=== PATIENT | female | born 1980 | race Caucasian/White ===

== ENCOUNTER → 2017-12-25 | Outpatient (CLI) | payer MEDICAID ==
--- NOTE | 2017-12-25 09:26 | RADIOLOGY IMAGING REPORT ---
FACILITY: [facility] - [place] PATIENT NAME: Camille Corrae : 1980 MR: [id number] V: [id number] EXAM DATE: ORDERING PHYSICIAN: GILBERT GORDILLO TECHNOLOGIST: Location: [facility] Patient: Camille Correa : 1980 Visit/Account:[id number] Date of Sevice: 12/25/2017 VENOUS DOPP LOW LEFT EXTREMITY HISTORY: at 30 weeks gestation, 2-3 weeks of leg swelling. Concern for deep venous thrombu s. COMPARISON: None. FINDINGS: Grayscale, duplex and color Doppler interrogation of the left lower extremity deep veins from common femoral vein to proximal calf was completed. Compression was performed where it was possible. The rig ht common femoral vein was evaluated using similar technique. Common femoral vein - Negative. Femoral vein - Negative. Deep femoral vein - Negative. Popliteal vein - Negative. Visualized deep calf veins - Negative. Popliteal fossa: Negative. Contralateral (right) common femoral vein: Negative. IMPRESSION: No evidence of acute deep venous thrombosis in the visualized veins of the left lower extremity. Report Dictated By: Wayne Penaloza at 12/25/2017 9:21 AM Report E-Signed By: Wayne Penaloza at 12/25/2017 9:22 AM WSN:[id number]
== END ==
LOC: US 08:29
PROVIDERS: ATTEND Physician Assistant
DX: R22.42 Localized swelling, mass and lump, left lower limb (principal)

== ENCOUNTER → 2018-01-08 | Outpatient (CLI) | payer MEDICAID ==
[~2018-01-08] VITALS: Ht 175.3 cm; Wt 136.5 kg
[~2018-01-08] MED LIST: ACET-1966 PO; ACETA/BUTAL/CAFF 325/50/40 TAB PO ONE; ASPI81TA94 PO; CETI10CA8 PO; METF-450 PO; PREN-127 PO; RANI-375 PO
[2018-01-08 14:30] VITALS: BP 136/80; Ht 175.3 cm; Wt 136.5 kg
[2018-01-08 15:17] LABS: PLATELET COUNT, AUTOMATED 164 K/uL (150-450)
== END ==
LOC: OB 13:53 → L&D 13:53 → UNDOADMIN 13:53 → UNDODISIN 16:45 → EDSTATUS 01-09 12:57
PROVIDERS: ATTEND Student in an Organized Health Care Education/Training Program
DX: O26.893 Other specified pregnancy related conditions, third trimester (principal); R51 Headache; R03.0 Elevated blood-pressure reading, without diagnosis of hypertension; Z3A.32 32 weeks gestation of pregnancy
CPT/HCPCS: 36415; 82040; 82247; 82310; 82374; 82435; 82565; 82570; 82947; 84075; 84132; 84155; 84156; 84295; 84450; 84460; 84520; 85025

== ENCOUNTER 2018-02-16 05:26 | Inpatient (IN) | payer MEDICAID ==
[~2018-02-16] VITALS: Ht 182.9 cm; Wt 144.7 kg
[2018-02-16] VITALS (20 sets, daily range): BP systolic 113–143; BP diastolic 58–81; Ht 182.9 cm; Wt 144.7 kg
[~2018-02-16 05:26] MED LIST changes: -ACETA/BUTAL/CAFF 325/50/40 TAB PO ONE
[2018-02-16] MEDS ORDERED: FAMOTIDINE(*) 20MG/50ML PREMIX 50 ML IVPB PRN (05:27)
[2018-02-16] MEDS ORDERED: DLR(*) 1000 ML BAG 1,000 ML IV PRN (05:27)
[2018-02-16] MEDS ORDERED: LR(*) 1000 ML BAG 1,000 ML IV PRN (05:27)
[2018-02-16] MEDS ORDERED: OXYTOCIN 30 UNIT/D5LR 500 ML 500 ML IV PRN (05:27)
[2018-02-16] MEDS ORDERED: fentaNYL CITR 100 MCG/2 ML AMP IVP PRN ×2 (05:30→23:50)
[2018-02-16] MEDS ORDERED: LIDOCAINE 1% LOCAL 300 MG/30ML INJ PRN (05:30)
[2018-02-16] MEDS ORDERED: TERBUTALINE SULF 1 MG/ML VIAL SUBQ PRN (05:30)
[2018-02-16] MEDS ORDERED: METOCLOPRAMIDE 10 MG/2 ML SDV IVP PRN (05:30)
[2018-02-16] MEDS ORDERED: cefOXitin/DEX(*) 2GM/50ML PREM 50 ML IVPB PRN (05:30)
[2018-02-16] MEDS ORDERED: FLUSH 10 ML SYR IVP PRN (05:30)
[2018-02-16 06:19] LABS: PLATELET COUNT, AUTOMATED 150 K/uL (150-450)
[2018-02-16] MEDS ORDERED: LIDO/EPI 2% MPF 1:200,000 20ML EPI PRN (08:30)
[2018-02-16] MEDS ORDERED: BUPIVACAINE 0.25% MPF INJ EPI PRN (08:30)
[2018-02-16] MEDS ORDERED: EPIDURAL KEYS XX PRN (08:30)
[2018-02-16] MEDS ORDERED: fentaNYL CITR 100 MCG/2 ML AMP IT PRN (08:30)
[2018-02-16] MEDS ORDERED: BUPIVACAINE 0.5% INJ 30ML VIAL EPI PRN (08:30)
[2018-02-16] MEDS ORDERED: LIDOCAINE/PF 2% 200MG/10ML AMP 200 MG/10 ML AMPUL EPI PRN (08:30)
[2018-02-16] MEDS ORDERED: FENTANYL/ROPIVACAINE 100 ML BAG EPI PRN (08:30)
--- NOTE | 2018-02-16 08:31 | History & Physical ---
History of Present Illness Age of Patient: 37 : 3 Para or TPAL: 2 EDC per LMP: Mar 04, 2018 Estimated Gestational Age: 37.5 Chief Complaint IOL History of Present Illness Presents for scheduled IOL due to gestational hypertension and history of high blood pressure in as well as history of LGA babies at 35 and 38 week s. complicated by obesity (BMI 42 and AMA. She declined all genetic screening. Her GBS screen was negative. Past Medical, Surgical, Family and Obstetric Histories reviewed. Please see ACOG chart. History Allergies: Coded Allergies: No Known Drug Allergies (Unverified , 01/08/18) Med Rec Home Meds Reported Medications Acetaminophen (TYLENOL) 325 Mg Tablet, 650 MG PO PRN PRN for HEADACHE, TAB 01/08/18 Aspirin (ASPIRIN) 81 Mg Tab.chew, 81 MG PO QDAY, TAB.CHEW 01/08/18 Ranitidine Hcl (ZANTAC 75) 75 Mg Tablet, 75 MG PO DAILY 01/08/18 Cetirizine Hcl (ZYRTEC) 10 Mg Capsule, 10 MG PO QDAY, CAPSULE 01/08/18 Metformin Hcl (METFORMIN HCL) 500 Mg Tablet, 1 TAB PO BID, TAB 01/08/18 Vits W-Ca,Fe,Fa(<1MG) ( VITAMINS) 1 Each Tablet, 1 EACH PO DAILY, TAB 01/08/18 Review of Systems All Systems Reviewed/Normal: Yes, Except as Noted Exam General Exam Vital Signs Vital Signs Date Time Temp Pulse Resp B/P (MAP) Pulse Ox O2 Delivery O2 Flow Rate FiO2 02/16/18 06:39 97.7 92 16 128/81 (97) 91 Room Air General Apperance: Alert/Awake/No Acute Distress Neuro: No Gross deficits Eyes: Normal Extraocular Movement & Vison Cardiovascular: Regular Rate and Rhythm Respiratory: No Respiratory Distress Abdomen: Soft, Non-Tender, Non-Distended, Gravid - Non-Tender Extremities: No Cyanosis,Clubbing or Edema Integumentary: Skin Intact without Lesions or Rash Psychological: Alert & Oriented X3, Appropriate Mood & Affect Vaginal Discharge/Fluid?: Bloody Show Cervical Dialation: 4 Cervical Effacement (%): 75 Cervical Consistency: Soft Cervical Position: Anterior Station: -2 Presentation: Vertex Fetus Heart Tone Variabilty: Moderate FHT Accelerations: 15X15 FHT Category: I Medical Decision Making Data Points Result Diagram: 02/16/18 0610 VTE Prophylasis: Adult Deep Vein Thrombosis/Pulmonary: No Pharmacological Contraindicati: Pt at Low Risk for VTE Mechanical Contraindications: Pt at Low Risk for VTE 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 Will be alert to shoulder dystocia a nd PP hemorrhage. Expecting . (2) Gestational hypertension Assessment & Plan: Monitor pressures and manage according to protocol. (3) Obesity, morbid, BMI 40.0-49.9 Problem Qualifiers (1) Gestational hypertension: Trimester: third trimester Qualified Codes: O13.3 - Gestational [- induced] hypertension without significant proteinuria, third trimester SAVI SUMMERS MD Feb 16, 2018 08:31
[2018-02-16] MEDS ORDERED: METHYLERGONOVINE MAL 0.2MG/ML ONE (08:41)
--- NOTE | 2018-02-16 09:45 | Anesthesia OB Pre-Anes Eval ---
History of Present Illness Anesthesia Start Date: Feb 16, 2018 Anesthesia Start Time: 09:00 Current Complication: gestational hypertention, obesity EDC: Mar 04, 2018 : 5 Para: 2 Vital Signs: Vital Signs Date Time Temp Pulse Resp B/P (MAP) Pulse Ox O2 Delivery O2 Flow Rate FiO2 02/16/18 06:39 97.7 92 16 128/81 (97) 91 Room Air Pain Ratin Result Diagram: 02/16/1860902/16/18609 Height (Inches): 72.00 Weight (Pounds): 319 Past Medical History Medical History: obesity, asthma (well controlled) Surgical History: noncontributory Previous Anesthesia: epidural Attended Childbirth Classes?: No Hx Anesthesia Reactions: No Hx Family Anesthesia Reaction: No Current Medications: pitocin Past Complications: obesity Home Meds Reported Medications Acetaminophen (TYLENOL) 325 Mg Tablet, 650 MG PO PRN PRN for HEADACHE, TAB 01/08/18 Aspirin (ASPIRIN) 81 Mg Tab.chew, 81 MG PO QDAY, TAB.CHEW 01/08/18 Ranitidine Hcl (ZANTAC 75) 75 Mg Tablet, 75 MG PO DAILY 01/08/18 Cetirizine Hcl (ZYRTEC) 10 Mg Capsule, 10 MG PO QDAY, CAPSULE 01/08/18 Metformin Hcl (METFORMIN HCL) 500 Mg Tablet, 1 TAB PO BID, TAB 01/08/18 Vits W-Ca,Fe,Fa(<1MG) ( VITAMINS) 1 Each Tablet, 1 EACH PO DAILY, TAB 01/08/18 Allergies: Coded Allergies: No Known Drug Allergies (Unverified , 01/08/18) Anesthesia OB ROS Neurological: No migraines/headaches, No seizures, No neuropathy, No other ENT: Denies Tooth caps, Denies Loose teeth, Denies Chipped teeth, Denies Dentures, Denies Bridges, Denies Retainers, Denies Veneers, Denies Implants, Denies Tongue ring, Denies Other Pulmonary: asthma Airway Class: ll Cardiovascular ROS: No edema, No arrhythmia, No other GI ROS: clear liquids ROS: No Herpes, No STD(s), No Liver Disease, No Renal Disease, No Other Endocrine ROS: No diabetes, No gestational diabetes, No thyroid disorder, No other Musculoskeletal ROS: No low back pain, No low back injury, No scoliosis, No other ASA Classification: 2 Assessment and Plan Anesthesia Plan: KENYATTA QUIÑONES CRNA Feb 16, 2018 09:45
--- NOTE | 2018-02-16 09:50 | Procedure Note ---
Anesthetic Placement Note Anesthesia Plan: LEB Permit for Anesthesia Signed: Yes Anesthesia Technique: Patient Sitting Anesthesia Prep: Chlorhexidine Interspace: L 4-5 Local Anesthetic: 1% Lidocaine, 25 Gauge Needle Amount Local - cc's: 5 Anesthesia Needle: 17g Touhy/Schliff Anesthesia Attempts: 1 Loss of Resistance: Normal Saline Depth of GRAY (cm): 8 Epidural Needle Placement: No CSF, No Blood, No Parasthesia Catheter Insertion (cm): 5 Catheter Type: [place] - Spring Wound Epidural Dressing: Tegaderm, Tape Anesthesia Tray: Lot Number ([id number]), Expiration Date (01/09/2019), Reference Number ([id number]) Anesthesia Medications: Epidural Test Dose: 1.5 Lido/Epi (1:200,000), Dose - mL (5 mL in increments), Time (918), Negative Epidural Loading Dose: 0.2% Ropivicaine, With Fentanyl 2mcg/ml, Dose - ml (6), Time (931) Epidural Infusion: 0.2% Ropivicaine, With Fentanyl 2mcg/ml, Start Time: (32) Epidural Pump Setting: Bolus Dose - mL (5), Lockout - Minutes (20), Maintenance Rate - mL/hr (10), Maximum per Hour - mL (25) Complications: None Comment: 100 mcg Fentanyl via epidural at 0928 KENYATTA MOROCHO CRNA Feb 16, 2018 09:50
--- NOTE | 2018-02-16 13:30 | Labor Progress Note ---
Labor Subjective Progress Notes Subjective Progressed from 5 cm to 9 cm over the last hour. Early decelerations noted. Reassuring FHTs. Vaginal Discharge/Fluid: Bloody Show Labor Pain: Mild Labor Objective Vital Signs Vital Signs Date Time Temp Pulse Resp B/P (MAP) Pulse Ox O2 Delivery O2 Flow Rate FiO2 02/16/18 06:39 97.7 92 16 128/81 (97) 91 Room Air Cervical Dialation: 9 Cervical Effacement (%): 100 Cervical Consistency: Soft Cervical Position: Anterior Station: -1 Presentation: Vertex Fetus Heart Tone Variabilty: Moderate FHT Accelerations: 15X15 FHT Decelerations: Early FHT Category: I Other Result Diagram: 02/16/1860902/16/18609 Assessment and Plan Problems: (1) 37 weeks gestation of Assessment & Plan: Expecting still. Will allow her to go to complete and labor down before pushing. (2) Gestational hypertension (3) Obesity, morbid, BMI 40.0-49.9 Problem Qualifiers (1) Gestational hypertension: Trimester: third trimester Qualified Codes: O13.3 - Gestational [-induced] hypertension without significant proteinuria, third trimester SAVI SUMMERS MD Feb 16, 2018 13:30
--- NOTE | 2018-02-16 13:37 | Anesthesia Progress Note ---
Progress/Maintenance Anesthesia Note Date: Feb 16, 2018 Anesthesia Note Time: 13:30 Pain Intensity: 5 (Pain is located in the pelvis.) Pump: On Pump Rate (ML/HR): 12 Sensory Level: R>L. Dilatation: 9 Position: Left, Tilt Drug Bolus: 0.2% Ropivicaine (5 mL bolus), Fentanyl 2mcg/ml KENYATTA MOROCHO CRNA Feb 16, 2018 13:37
[2018-02-16] MEDS ORDERED: LANOLIN OINT 7 GM TUBE TP PRN (15:55)
[2018-02-16] MEDS ORDERED: HYDROCORTISONE 2.5% CR 30GM TB PR PRN (15:55)
[2018-02-16] MEDS ORDERED: MAGNESIUM HYDROXIDE* 30ML UDCP PO PRN (15:55)
[2018-02-16] MEDS ORDERED: BENZOCAINE 20% 60 ML BTL TP PRN (15:55)
[2018-02-16] MEDS ORDERED: GLYCERIN/WITCH HAZEL LEAF 1 PK TP PRN (15:55)
[2018-02-16] MEDS ORDERED: ACETAMINOPHEN 325 MG TAB PO PRN (15:55)
--- NOTE | 2018-02-16 16:02 | OB Delivery Note ---
Delivery Note Vaginal Delivery Type: Spont. Vaginal Delivery Delivery Date: Feb 16, 2018 Delivery Time: 15:57 Estimated Gestational Age(wks): 37.5 Delivery Anesthesia: Epidural Sex: Female [place] Apgars: 1 Minute (8), 5 Minute (9) Repair Needed: Laceration, 1st Degree Estimated Blood Loss: 500 Notes: Presented for IOL planned for CHTN with recently increasing pressures and history of macrosomia. Her pressures have been stable here. Progressed from 4 cm on admission to 5 cm [id number]. Suddenly moved to 9 cm by 1330 and was complete by 1411. Allowed to labor down until urge to push. Delivery at 1532 in CRISTOPHER position over first degree laceration. When placenta delivered at 1537 there was a large gush of BRVB. Methergine 0.2 mg IM administered as well as Pitocin infusion IV. Cytotec 800 mcg given rectally also. First degree laceration repaired with 2-0 Chromic without complication. By end of repair, bleeding stable and uterus firm. EBL 500 ml. Instructional Manager in Attendence: No Copies to: SAVI SUMMERS MD ; SAVI SUMMERS MD Feb 16, 2018 16:02
--- NOTE | 2018-02-16 16:18 | Anesthesia Progress Note ---
Progress/Maintenance Anesthesia Note Date: Feb 16, 2018 Anesthesia Note Time: 16:17 Pump: Off Assessment and Plan Anesthesia Plan: LEB Anesthesia Stop Day: Feb 16, 2018 Anesthesia Stop Time: 15:57 KENYATTA MOROCHO CRNA Feb 16, 2018 16:18
[2018-02-16] MEDS ORDERED: OXYTOCIN 30 UNIT/D5LR 500 ML 500 ML ONE (16:39)
[2018-02-16] MEDS ORDERED: MISOPROSTOL 200 MCG TAB ONE (16:39)
[2018-02-16] MEDS: IBUPROFEN 800 MG TAB PO SCH (17:00)
[2018-02-16] MEDS: APAP/HYDROCODONE 325/5 TAB PO PRN (20:14)
[2018-02-16 20:21] LABS: PLATELET COUNT, AUTOMATED 157 K/uL (150-450)
[2018-02-16] MEDS ORDERED: CARBOPROST TROMETHAM 250MCG/ML IM ONLY ONE (20:40)
[2018-02-16] MEDS ORDERED: TRANEXAMIC AC 1000 MG/10ML SDV 1,000 MG in NS(*) 0.9% 50 ML BAG 50 ML IVPB ONE (21:40)
[2018-02-16] MEDS: DOCUSATE CALCIUM 240 MG CAP PO SCH (21:55)
[2018-02-16] MEDS ORDERED: MIDAZOLAM 2 MG/2 ML VIAL ONE (22:17)
[2018-02-16] MEDS ORDERED: PROPOFOL EMUL(*) 10MG/ML 20 ML 20 ML ONE (22:17)
[2018-02-16] MEDS ORDERED: KETAMINE HCL-NS 50 MG/5 ML SYR ONE (22:17)
[2018-02-16] MEDS ORDERED: NS(*) 0.9% 1000 ML BAG 1,000 ML ONE (22:20)
[2018-02-16] MEDS ORDERED: fentaNYL CITR 100 MCG/2 ML AMP ONE (22:24)
[2018-02-16] MEDS ORDERED: TRANEXAMIC AC 1000 MG/10ML SDV 1,000 MG in DEXTROSE 5% 50 ML BAG 50 ML IVPB ONE (22:30)
--- NOTE | 2018-02-16 22:33 | OB/GYN Progress Note ---
OB Subjective Progress Notes Subjective Has continued to have steady stream of bleeding and several episodes of passing large clots. EBL at delivery was 500 ml and now has passed an additional estimated 800 ml in clots. Has received 0.2 mg methergine, 2 bags of Pitocin (40U total), Cytotec 800 mcg MT x 1 and recently Hemabate 250 mcg IM. I just ordered tranexamic acid 1 gm IV followed by 1gm over the next 2 hours. She has been typed and cross matched for 2 units PRBCs. Most recent CBC showed hemiglobin 10.1 and hct 31.0, plts 150. OB Objective Physical Exam Vital Signs Date Time Temp Pulse Resp B/P (MAP) Pulse Ox O2 Delivery O2 Flow Rate FiO2 02/16/18 20:40 82 136/79 (98) 02/16/18 20:20 16 92 Room Air 02/16/18 19:56 97.7 General Appearance: Alert/Awake/No Acute Distress Neurological: No Gross deficits Eyes: Normal Extraocular Movement & Vison Respiratory: No Respiratory Distress : Other (manual uterine exam is firm at fundus but difficult to palpate due to obesity and large amount of clot in lower uterine segment) Extremities: No Cyanosis,Clubbing or Edema Integumentary: Skin Intact without Lesions or Rash Psychological: Alert & Oriented X3, Appropriate Mood & Affect Result Diagram: 02/16/18201402/16/18 0610 Assessment and Plan Problems: (1) 37 weeks gestation of (2) Gestational hypertension (3) Obesity, morbid, BMI 40.0-49.9 (4) Hemorrhage, delayed Assessment & Plan: Considering we are approaching 1500 ml, will bring pt back to OR for conscious sedation and manual exam and evacuation of uterine clots with Bakri balloon placement. Will get coag panel and start transfusion of 2 units PRBCs. Problem Qualifiers (1) Gestational hypertension: Trimester: third trimester Qualified Codes: O13.3 - Gestational [- induced] hypertension without significant proteinuria, third trimester SAVI SUMMERS MD Feb 16, 2018 22:33
[2018-02-16] MEDS ORDERED: NS(*) 0.9% 500 ML BAG 500 ML ONE (22:45)
[2018-02-16 22:50] LABS: PLATELET COUNT, AUTOMATED 153 K/uL (150-450)
[2018-02-16 23:04] LABS: INR 0.99
--- NOTE | 2018-02-16 23:27 | Post Operative Note ---
Operative Note - QUILT SEWER Operative Day Date: Feb 16, 2018 Time: 23:15 Physicians Surgeon: Korin Anesthesia: conscious sedation Diagnosis Pre-Op Diagnosis: hemorrhage (delivery 1557) Post-Op Diagnosis: same Procedure Findings: uterus with clot and small fragments of tissue Procedure(s): manual exploration of uterus manual currettage of uterus sharp currettage of uterus placement of Bakri Balloon Complications: none Fluids Fluids: IV cyrstalloid Estimated Blood Loss: 1500 ml Dictated Date OP Note Dictated: Feb 16, 2018 Time OP Note Dictated: 23:18 Copies to: SAVI SUMMERS MD ; SAVI SUMMERS MD Feb 16, 2018 23:16
[2018-02-16] MEDS ORDERED: METHYLERGONOVINE MAL 0.2MG/ML IM ONE (23:50)
[2018-02-16] MEDS ORDERED: cefOXitin/DEX(*) 2GM/50ML PREM 50 ML IVPB ONE (23:50)
[2018-02-17] VITALS (8 sets, daily range): BP systolic 114–135; BP diastolic 56–85
--- NOTE | 2018-02-17 00:10 | Anesthesia OB Pre-Anes Eval ---
History of Present Illness Anesthesia Start Date: Feb 16, 2018 Anesthesia Start Time: 22:40 OB Anesthesia Diagnosis: other (Post hemorrhage) Current Complication: hemorrhage EDC: Mar 04, 2018 : 5 Para: 2 Pain Ratin Result Diagram: 02/16/18 2246 02/16/18 0610 Height (Inches): 72.00 Weight (Pounds): 319 Past Medical History Medical History: hypertension, obesity Surgical History: noncontributory Previous Anesthesia: general, epidural Attended Childbirth Classes?: No Hx Anesthesia Reactions: No Hx Family Anesthesia Reaction: No Past Complications: obesity Home Meds Reported Medications Acetaminophen (TYLENOL) 325 Mg Tablet, 650 MG PO PRN PRN for HEADACHE, TAB 01/08/18 Aspirin (ASPIRIN) 81 Mg Tab.chew, 81 MG PO QDAY, TAB.CHEW 01/08/18 Ranitidine Hcl (ZANTAC 75) 75 Mg Tablet, 75 MG PO DAILY 01/08/18 Cetirizine Hcl (ZYRTEC) 10 Mg Capsule, 10 MG PO QDAY, CAPSULE 01/08/18 Metformin Hcl (METFORMIN HCL) 500 Mg Tablet, 1 TAB PO BID, TAB 01/08/18 Vits W-Ca,Fe,Fa(<1MG) ( VITAMINS) 1 Each Tablet, 1 EACH PO DAILY, TAB 01/08/18 Allergies: Coded Allergies: No Known Drug Allergies (Unverified , 01/08/18) Anesthesia OB ROS Neurological: No migraines/headaches, No seizures, No neuropathy, No other ENT: Denies Tooth caps, Denies Loose teeth, Denies Chipped teeth, Denies Dentures, Denies Bridges, Denies Retainers, Denies Veneers, Denies Implants, Denies Tongue ring, Denies Other Pulmonary: No asthma, No smoker (pks/day/yrs), No other Airway Class: ll Cardiovascular ROS: No edema, No arrhythmia, No other GI ROS: NPO Last Solids Date: Feb 16, 2018 Last Solids Time: 17:00 ROS: No Herpes, No STD(s), No Liver Disease, No Renal Disease, No Other Endocrine ROS: No diabetes, No gestational diabetes, No thyroid disorder, No other Musculoskeletal ROS: No low back pain, No low back injury, No scoliosis, No other ASA Classification: 3, E Assessment and Plan Assessment: Monitored anesthesia care provided for OR procedure by Dr. Langley. Vaginal/uterine exam, clot evacuation, Bakri balloon placement. Anesthesia Stop Day: Feb 16, 2018 Anesthesia Stop Time: 23:40 Condition Patient taken to PACU in stable condition post procedure in OR (OB). Vital signs remained WNL, patient was awake and conversant. Denied nausea. Pain rating 3-4/10 and PO opioids were administered by RN per surgeon orders. Patient discharged from PACU after 40 minutes. No anesthesia concerns at present. KENYATTA MOROCHO CRNA Feb 17, 2018 00:10
[2018-02-17] MEDS: APAP/HYDROCODONE 325/5 TAB PO PRN ×4 (00:44→19:20)
[2018-02-17] MEDS: IBUPROFEN 800 MG TAB PO SCH ×3 (01:00→17:29)
--- NOTE | 2018-02-17 03:13 | OPERATIVE REPORT 1 ---
EVENT DATE: February 16, 2018 SURGEON: Beni Langley MD ANESTHESIA: General conscious sedation, Kemal Edwards CRNA PREOPERATIVE DIAGNOSIS hemorrhage with delivery occurring today at 1557. POSTOPERATIVE DIAGNOSIS hemorrhage with delivery occurring today at 1557. PROCEDURE PERFORMED 1. Manual exploration of the uterus. 2. Manual curettage of the uterus. 3. Sharp curettage of the uterus. 4. Placement of Bakri balloon for hemorrhage management. ESTIMATED BLOOD LOSS Approximately 1500 mL since delivery. FLUIDS IV crystalloid. INDICATIONS FOR PROCEDURE The patient has been having continuous bright red hemorrhage with the additional passage of large clots since delivery. This has been in the face of the usual conservative measures, including 0.2 mg Methergine IM, Cytotec 800 mcg rectally, Pitocin infusion 20 units per bag x2 , Carboprost 250 mcg IM x1, and most recently the start of tranexamic acid. She was typed and crossmatched for two units of packed red blood cells, and have initiated transfusion at this point. Secondary to these issues, I presented for an examination and felt the uterus was still enlarged, with clot within the uterine cavity. Therefore, I had her moved to the operating room under conscious sedation in the dorsal lithotomy position for a manual exploration. DESCRIPTION OF PROCEDURE Once the patient was comfortable, manually, the uterus was explored anteriorly and a large, fist-sized clot was removed, as well as curettage of the uterine cavity removed fragments of placental tissue. Once the manual curettage and exploration was complete, a large banjo curette was passed into the uterus manually, and the uterine cavity was curetted anteriorly and posteriorly without any significant change to the tissue that was removed. Therefore, the Bakri balloon was assembled, passed through the cervix into the uterus, and inflated with 360 mL of normal saline. Once the balloon had been adequately inflated, the bleeding seemed to be very minimal. canal was inspected and found to be without any additional lacerations or injuries. The previously placed stitches in the first-degree perineal laceration were intact, with no visible disruption. Therefore, the patient was cleaned up, returned to the supine position, and taken to recovery. The plan will be to leave this Bakri balloon in place for most of tomorrow and to give time for the blood products and the medication to work and effectively control her bleeding. MARIUM
[2018-02-17] MEDS: METHYLERGONOVINE MAL 0.2MG TAB PO SCH ×4 (05:48→23:48)
[2018-02-17] MEDS ORDERED: LR(*) 1000 ML BAG 1,000 ML IV PRN (05:55)
--- NOTE | 2018-02-17 08:05 | OB/GYN Progress Note ---
OB Subjective Progress Notes Subjective Improved. Bleeding light now and little pain. Feeling better as far as energy and alertness. Had transfusion of 2 units of PRBCs. Pain: Mild OB Objective Physical Exam Vital Signs Date Time Temp Pulse Resp B/P (MAP) Pulse Ox O2 Delivery O2 Flow Rate FiO2 02/17/18 02:32 98.5 80 16 119/72 02/17/18 00:21 95 Nasal Cannula 1.0 Intake and Output 02/17/18 07:00 Intake Total 3222 ml Output Total 2442 ml Balance 780 ml Intake Oral 222 ml IV Total 2000 ml Blood Product 1000 ml Output Urine Total 300 ml Estimated Blood Loss 2142 ml General Appearance: Alert/Awake/No Acute Distress Neurological: No Gross deficits Eyes: Normal Extraocular Movement & Vison Cardiovascular: Normal Rhythm & Peripheral Pulses, Regular Rate and Rhythm Respiratory: No Respiratory Distress, Clear to Auscultation Abdomen: Soft, Non-Tender, Non-Distended : Other (manual uterine exam is firm at fundus but difficult to palpate due to obesity and large amount of clot in lower uterine segment) Extremities: Edema (2+) Integumentary: Skin Intact without Lesions or Rash Psychological: Alert & Oriented X3, Appropriate Mood & Affect Result Diagram: 02/17/18 0555 02/16/18 0610 Assessment and Plan Problems: (1) 37 weeks gestation of (2) Gestational hypertension Assessment & Plan: stable (3) Obesity, morbid, BMI 40.0-49.9 Assessment & Plan: Ambulate today. (4) Hemorrhage, delayed Assessment & Plan: Continue with balloon until tonight and then remove. Will do 20 mg Lasix today for edema. Problem Qualifiers (1) Gestational hypertension: Trimester: third trimester Qualified Codes: O13.3 - Gestational [- induced] hypertension without significant proteinuria, third trimester SAVI SUMMERS MD Feb 17, 2018 08:05
[2018-02-17] MEDS ORDERED: FUROSEMIDE 40 MG TAB PO ONE (08:30)
[2018-02-17] MEDS: DOCUSATE CALCIUM 240 MG CAP PO SCH ×2 (09:00→20:47)
[2018-02-17] MEDS ORDERED: INFLUENZA VIRUS VAC 0.5ML SYR IM ONLY ONE (09:00)
[2018-02-17] MEDS ORDERED: MEASLES,MUMP,RUBELLA VAC 0.5ML SUBQ ONE (09:00)
[2018-02-17] MEDS ORDERED: DIPHTH/TETANUS/ACEL. PERTUSSIS IM ONLY ONE (09:00)
--- NOTE | 2018-02-17 11:55 | Anesthesia Post Eval Note ---
Anesthesia Post Eval Note Vital Signs Date Time Temp Pulse Resp B/P (MAP) Pulse Ox O2 Delivery O2 Flow Rate FiO2 02/17/18 09:03 98.2 73 16 114/56 (75) 95 Nasal Cannula 1.0 Pt able to participate in Eval: Yes Cardiovascular Status: Satisfactory Respiratory Status: Satisfactory Pain Managment: Satisfactory PO Nausea/Vomiting: Satisfactory Temperature Management: Satisfactory Mental Status: Satisfactory, Alert, Oriented X3 Post-Op Hydration Status: Satisfactory, Tolerating PO Well, Voiding w/o Difficulty Anesthesia Tolerance: Post monitored anesthesia care (MAC) evaluation. No anesthesia concerns. Patient pleased with care provided for management of post- hemorrhage. Received 2 units of PRBCs and Bakri balloon still in place. Pain well controlled, denies nausea/vomiting. KENYATTA MOROCHO CRNA Feb 17, 2018 11:55
--- NOTE | 2018-02-17 17:07 | OB/GYN Progress Note ---
OB Subjective Progress Notes Subjective Doing well. Bleeding has been light and feeling stable. BP low. Good UO from Lasix. GI: NEG Nausea : Voiding Well Pain: Mild OB Objective Physical Exam Vital Signs Date Time Temp Pulse Resp B/P (MAP) Pulse Ox O2 Delivery O2 Flow Rate FiO2 02/17/18 13:48 98.4 93 18 119/66 (83) Room Air 02/17/18 09:03 95 1.0 Intake and Output 02/17/18 07:00 Intake Total 3222 ml Output Total 2442 ml Balance 780 ml Intake Oral 222 ml IV Total 2000 ml Blood Product 1000 ml Output Urine Total 300 ml Estimated Blood Loss 2142 ml General Appearance: Alert/Awake/No Acute Distress Neurological: No Gross deficits Eyes: Normal Extraocular Movement & Vison Cardiovascular: Normal Rhythm & Peripheral Pulses, Regular Rate and Rhythm Respiratory: No Respiratory Distress, Clear to Auscultation Abdomen: Soft, Non-Tender, Non-Distended : Other (scant bleeding now) Extremities: Edema (2+) Integumentary: Skin Intact without Lesions or Rash Psychological: Alert & Oriented X3, Appropriate Mood & Affect Result Diagram: 02/17/18 0555 02/16/18 0610 Assessment and Plan Problems: (1) 37 weeks gestation of (2) Gestational hypertension (3) Obesity, morbid, BMI 40.0-49.9 (4) Hemorrhage, delayed Assessment & Plan: Bakri balloon removed without complication. Will monitor bleeding overnight. If does well, home tomorrow. Problem Qualifiers (1) Gestational hypertension: Trimester: third trimester Qualified Codes: O13.3 - Gestational [- induced] hypertension without significant proteinuria, third trimester SAVI SUMMERS MD Feb 17, 2018 17:07
[2018-02-18] MEDS: IBUPROFEN 800 MG TAB PO SCH ×2 (00:18→08:32)
[2018-02-18] MEDS: METHYLERGONOVINE MAL 0.2MG TAB PO SCH (05:32)
[2018-02-18 07:10] VITALS: BP 127/83
[2018-02-18] MEDS: APAP/HYDROCODONE 325/5 TAB PO PRN (07:39)
[2018-02-18] MEDS: DOCUSATE CALCIUM 240 MG CAP PO SCH (08:32)
--- NOTE | 2018-02-18 09:16 | OB/GYN Progress Note ---
OB Subjective Progress Notes Subjective Doing well. Pain well controlled and bleeding light now. Voiding well. GI: NEG Nausea : Voiding Well Pain: Mild OB Objective Physical Exam Vital Signs Date Time Temp Pulse Resp B/P (MAP) Pulse Ox O2 Delivery O2 Flow Rate FiO2 02/18/18 03:00 98.2 17 Room Air 02/17/18 23:40 135/73 (93) 02/17/18 13:48 93 02/17/18 09:03 95 1.0 Intake and Output0 02/18/18 07:00 Intake Total 1970 ml Output Total 1000 ml Balance 970 ml Intake Oral 1470 ml IV Total 500 ml Output Urine Total 1000 ml # Voids 1 General Appearance: Alert/Awake/No Acute Distress Neurological: No Gross deficits Eyes: Normal Extraocular Movement & Vison Cardiovascular: Normal Rhythm & Peripheral Pulses, Regular Rate and Rhythm Respiratory: No Respiratory Distress, Clear to Auscultation Abdomen: Soft, Non-Tender, Non-Distended : Other (scant bleeding now) Extremities: Edema (2+) Integumentary: Skin Intact without Lesions or Rash Psychological: Alert & Oriented X3, Appropriate Mood & Affect Result Diagram: 02/17/18 0555 02/16/18 0610 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 F/U at 6 weeks in office. (2) Gestational hypertension Status: Chronic (3) Obesity, morbid, BMI 40.0-49.9 (4) Hemorrhage, delayed Status: Resolved Assessment & Plan: Precautions for bleeding and infection given. Problem Qualifiers (1) Gestational hypertension: Trimester: third trimester Qualified Codes: O13.3 - Gestational [- induced] hypertension without significant proteinuria, third trimester SAVI SUMMERS MD Feb 18, 2018 09:16
[2018-02-18] MEDS ORDERED: LOR5/325 PO (09:17)
[2018-02-18] MEDS ORDERED: IBUP800T37 PO (09:17)
--- NOTE | 2018-02-18 09:21 | OB/GYN Discharge Summary ---
Discharge Summary Reason for Hosp/Final Diag: (1) 37 weeks gestation of Hospital Course & Plan: Delivered and recovering well, s/p . F/U at 6 weeks in office. (2) Gestational hypertension Status: Chronic (3) Obesity, morbid, BMI 40.0-49.9 (4) Hemorrhage, delayed Status: Resolved Hospital Course & Plan: Precautions for bleeding and infection given. [facility] Vital Signs Vital Signs Date Time Temp Pulse Resp B/P (MAP) Pulse Ox O2 Delivery O2 Flow Rate FiO2 02/18/18 03:00 98.2 17 Room Air 02/17/18 23:40 135/73 (93) 02/17/18 13:48 93 02/17/18 09:03 95 1.0 Weight (Pounds): 319 Result Diagram: 02/17/18 0555 02/16/18 0610 Condition: Improved Discharge: Home, Self Senior Living Meds Active Scripts Hydrocodone Bit/Acetaminophen (HYDROCODON-ACETAMINOPHEN 5-325) 1 Each Tablet, 1- 2 EACH PO Q4H PRN for PAIN, #20 TAB 0 Refills Prov:SAVI LANGLEY MD 02/18/18 Reported Medications Acetaminophen (TYLENOL) 325 Mg Tablet, 650 MG PO PRN PRN for HEADACHE, TAB 01/08/18 Aspirin (ASPIRIN) 81 Mg Tab.chew, 81 MG PO QDAY, TAB.CHEW 01/08/18 Ranitidine Hcl (ZANTAC 75) 75 Mg Tablet, 75 MG PO DAILY 01/08/18 Cetirizine Hcl (ZYRTEC) 10 Mg Capsule, 10 MG PO QDAY, CAPSULE 01/08/18 Metformin Hcl (METFORMIN HCL) 500 Mg Tablet, 1 TAB PO BID, TAB 01/08/18 Vits W-Ca,Fe,Fa(<1MG) ( VITAMINS) 1 Each Tablet, 1 EACH PO DAILY, TAB 01/08/18 Follow up Referrals: SPECIALIST ICU - In 6 Weeks @ [facility] with SAVI LANGLEY MD Follow up with: Dr. Langley [phone] Follow up in: 6 wks PP or PO Discharge Diet: As Tolerates Discharge Activity: As Tolerates, No Heavy Lifting x 6 wks, No Heavy Lifting > 10lb, Pelvic Rest Copies to: SAVI LANGLEY MD ; Problem Qualifiers (1) Gestational hypertension: Trimester: third trimester Qualified Codes: O13.3 - Gestational [- induced] hypertension without significant proteinuria, third trimester SAVI LANGLEY MD Feb 18, 2018 09:21
== END 2018-02-18 14:25 | disposition home or self-care (01) | DRG 768 ==
LOC: OB 05:26
PROVIDERS: ADMIT Obstetrics & Gynecology; ATTEND Obstetrics & Gynecology
PROC: 10E0XZZ Delivery of Products of Conception, External Approach (ICD-10-PCS; principal; 2018-02-16)
PROC: 0W3R7ZZ Control Bleeding in Genitourinary Tract, Via Natural or Artificial Opening (ICD-10-PCS; 2018-02-16)
PROC: 10D17Z9 Manual Extraction of Products of Conception, Retained, Via Natural or Artificial Opening (ICD-10-PCS; 2018-02-16)
PROC: 0HQ9XZZ Repair Perineum Skin, External Approach (ICD-10-PCS; 2018-02-16)
PROC: 3E033VJ Introduction of Other Hormone into Peripheral Vein, Percutaneous Approach (ICD-10-PCS; 2018-02-16)
PROC: 30233N1 Transfusion of Nonautologous Red Blood Cells into Peripheral Vein, Percutaneous Approach (ICD-10-PCS; 2018-02-16)
DX: O13.4 Gestational [pregnancy-induced] hypertension without significant proteinuria, complicating childbirth (principal); Z37.0 Single live birth; O99.214 Obesity complicating childbirth; E66.01 Morbid (severe) obesity due to excess calories; O70.0 First degree perineal laceration during delivery; O72.2 Delayed and secondary postpartum hemorrhage; Z3A.37 37 weeks gestation of pregnancy
CPT/HCPCS: 36415; 82040; 82247; 82310; 82374; 82435; 82565; 82947; 84075; 84132; 84155; 84295; 84450; 84460; 84520; 85025; 85027; 85049; 85379; 85384; 85610; 85730; 86703; 86850; 86900; 86901; 86920; J0694; J2210; J2250; J2590; J2704; J3010; J3490; J7030; J7050; J7060; J7120; P9016